=== PATIENT | male | born 1940 | race Caucasian/White ===

== ENCOUNTER 2024-04-22 19:40 | Inpatient (IN) | payer OTHER ==
[2024-04-22] MEDS ORDERED: ACETAMINOPHEN 325 MG TABLET (FP) ONE (21:10)
[2024-04-22] MEDS ORDERED: ALBUTEROL SO4 2.5/IPRATROPIUM 0.5 INH SOL 3 ML VIAL.NEB. NEB ONE (21:28)
[2024-04-22] MEDS ORDERED: methylPREDNISolone NA SUCC 125 MG/2 ML VIAL ONE (21:28)
[2024-04-22 21:33] LABS: VENOUS BASE EXCESS 0.7 mmol/L (-2-2); VENOUS O2 SATURATION 56.2 % (70-80); VENOUS PCO2 40.1 mmHg (38-52); VENOUS PH 7.416 (7.310-7.410)
[2024-04-22 21:34] LABS: HEMATOCRIT 35.1 % (35.4-49); HEMOGLOBIN 11.8 GM/dL (11.7-16.9); MCH 31.6 pg (25.7-33.7); MCHC 33.6 g/dl (32.0-35.9); MEAN CELL VOLUME 94.1 fl (80-96); PLATELET COUNT 84 10^3/uL (134-434); RBC 3.73 M/mm3 (4.00-5.60); RDW 15.7 % (11.9-15.9); WHITE BLOOD COUNT 6.5 K/mm3 (4.0-10.0)
[2024-04-22 21:37] LABS: EPI CELLS 4 /uL (0-25.1); HYALINE CASTS 0 /uL (0-3.1); URINE APPEARANCE CLEAR; URINE BACTERIA 12 /uL (0-1359); URINE BILIRUBIN NEGATIVE (NEGATIVE); URINE COLOR YELLOW; URINE GLUCOSE (UA) NEGATIVE (NEGATIVE); URINE KETONE NEGATIVE (NEGATIVE); URINE LEUK ESTERASE TRACE (NEGATIVE); URINE NITRITE NEGATIVE (NEGATIVE); URINE PROTEIN 1+ (NEGATIVE); URINE RBC 24 /uL (0-23.9); URINE WBC 16 /uL (0-25.8)
[2024-04-22] MEDS: ACETAMINOPHEN 325 MG TABLET (FP) PO ONE (21:39)
[2024-04-22] MEDS: ALBUTEROL SO4 2.5/IPRATROPIUM 0.5 INH SOL 3 ML VIAL.NEB. NEB ONE (21:39)
[2024-04-22] MEDS: methylPREDNISolone NA SUCC 125 MG/2 ML VIAL IVPUSH ONE (21:40)
[2024-04-22] MEDS ORDERED: CEFTRIAXONE 1 GM/50 ML BAG ONE (22:29)
[2024-04-22] MEDS ORDERED: AZITHROMYCIN IVPB 500 MG/250 ML BAG IVPB ONE (22:29)
[2024-04-22 22:33] LABS: POTASSIUM 4.3 mmol/L (3.5-5.1)
[2024-04-22 22:36] LABS: ALBUMIN 3.9 g/dl (3.4-5.0); BLOOD UREA NITROGEN 32.4 mg/dL (7-18); MAGNESIUM 1.9 mg/dL (1.8-2.4)
[2024-04-22 22:39] LABS: CREATININE 1.2 mg/dL (0.55-1.3)
[2024-04-22 22:41] LABS: BILIRUBIN,TOTAL 0.8 mg/dL (0.2-1); TOT PROT 7.7 g/dl (6.4-8.2)
[2024-04-22] MEDS: AZITHROMYCIN IVPB 500 MG in DEXTROSE 5%-WATER - 250 ML IVPB ONE (22:58)
[2024-04-22] MEDS ORDERED: ACETAMINOPHEN 325 MG TABLET (FP) PO PRN (23:05)
[2024-04-22] MEDS ORDERED: PANTOPRAZOLE 40 MG TABLET PO ONE (23:33)
[2024-04-22] MEDS: PANTOPRAZOLE 40 MG TABLET PO SCH (23:45)
[2024-04-22] MEDS: D5-1/2NS+10 MEQ KCL - 10 MEQ/1,000 ML INFUS.BAG IV SCH (23:45)
[2024-04-23] MEDS ORDERED: MAGNESIUM 1GM/D5W - 1 GM/100 ML IVPB IVPB ONE (00:06)
[2024-04-23] MEDS: MAGNESIUM 1GM/D5W 100ML - 100 ML IVPB IVPB ONE (00:10)
[2024-04-23 08:25] LABS: POTASSIUM 3.8 mmol/L (3.5-5.1)
[2024-04-23 08:28] LABS: BLOOD UREA NITROGEN 27.7 mg/dL (7-18); HEMATOCRIT 32.9 % (35.4-49); HEMOGLOBIN 11.1 GM/dL (11.7-16.9); MCHC 33.6 g/dl (32.0-35.9); MEAN CELL VOLUME 95.1 fl (80-96); MEAN PLT VOLUME 9.2 fl (7.5-11.1); PLATELET COUNT 74 10^3/uL (134-434); RBC 3.46 M/mm3 (4.00-5.60); RDW 15.6 % (11.9-15.9); WHITE BLOOD COUNT 6.3 K/mm3 (4.0-10.0)
[2024-04-23 08:31] LABS: CREATININE 1.4 mg/dL (0.55-1.3)
[2024-04-23 09:20] LABS: ANISOCYTOSIS 0; MACROCYTOSIS 0
[2024-04-23] MEDS ORDERED: ENOXAPARIN NA (PORCINE) 40 MG/0.4 ML DISP.SYRIN SQ SCH (10:00)
[2024-04-23] MEDS: ENOXAPARIN NA (PORCINE) 40 MG/0.4 ML DISP.SYRIN SQ SCH (11:00)
[2024-04-23] MEDS ORDERED: PANTOPRAZOLE 40 MG TABLET PO ONE (14:37)
[2024-04-23] MEDS ORDERED: ASPIRIN COATED 81 MG TABLET.EC ONE (14:37)
[2024-04-23] MEDS ORDERED: CEFTRIAXONE 1 GM/50 ML BAG ONE (14:38)
[2024-04-23] MEDS ORDERED: ENOXAPARIN NA (PORCINE) 40 MG/0.4 ML DISP.SYRIN SQ ONE (14:38)
[2024-04-23] MEDS: CEFTRIAXONE 1 GM in DEXTROSE 5%-WATER - 50 ML IVPB SCH (14:52)
[2024-04-23] MEDS: ASPIRIN COATED 81 MG TABLET.EC PO SCH (14:52)
[2024-04-23] MEDS: INSULIN ASPART SLIDING SCALE (NOVOLOG) 1 VIAL SQ SCH (21:39)
[2024-04-24 09:23] LABS: BASO % 0.1 % (0-2.0); EOS % 0.2 % (0-4.5); HEMATOCRIT 31.4 % (35.4-49); HEMOGLOBIN 10.5 GM/dL (11.7-16.9); LYMPH % 9.7 % (8-40); MCH 31.9 pg (25.7-33.7); MCHC 33.5 g/dl (32.0-35.9); MEAN CELL VOLUME 95.1 fl (80-96); MONO % 9.4 % (3.8-10.2); NEUT % 80.6 % (42.8-82.8); PLATELET COUNT 86 10^3/uL (134-434); RDW 15.2 % (11.9-15.9); WHITE BLOOD COUNT 9.3 K/mm3 (4.0-10.0)
[2024-04-24] MEDS: CEFTRIAXONE 1 G/50 ML PREMIX 50 ML IVPB SCH (09:45)
[2024-04-24 09:57] LABS: BLOOD UREA NITROGEN 28.5 mg/dL (7-18)
[2024-04-24 09:58] LABS: CREATININE 1.1 mg/dL (0.55-1.3)
[2024-04-24 09:59] LABS: CALCIUM 9.1 mg/dL (8.5-10.1)
[2024-04-24] MEDS: PIPERACILLIN/TAZOB 3.375 GM 50 ML IVPB SCH (20:30)
[2024-04-25] MEDS: FUROSEMIDE 40 MG/4 ML INJECTABLE VIAL IVPUSH SCH (10:34)
[2024-04-25] MEDS: SACUBITRIL/VALSARTAN 24 MG-26 MG TABLET PO SCH (10:34)
[2024-04-25 11:15] LABS: BASO % 0.1 % (0-2.0); HEMATOCRIT 36.7 % (35.4-49); HEMOGLOBIN 12.3 GM/dL (11.7-16.9); LYMPH % 10.8 % (8-40); MCH 31.6 pg (25.7-33.7); MCHC 33.4 g/dl (32.0-35.9); MEAN CELL VOLUME 94.5 fl (80-96); MEAN PLT VOLUME 9.1 fl (7.5-11.1); MONO % 11.8 % (3.8-10.2); NEUT % 76.3 % (42.8-82.8); PLATELET COUNT 109 10^3/uL (134-434); RBC 3.88 M/mm3 (4.00-5.60); RDW 15.6 % (11.9-15.9); WHITE BLOOD COUNT 8.4 K/mm3 (4.0-10.0)
[2024-04-25 11:43] LABS: BLOOD UREA NITROGEN 28.7 mg/dL (7-18); CALCIUM 9.2 mg/dL (8.5-10.1)
[2024-04-25 11:47] LABS: CREATININE 1.2 mg/dL (0.55-1.3)
[2024-04-25] MEDS: guaiFENesin/CODEINE 5 ML UNIT-DOSE CUPS PO PRN (22:04)
[2024-04-25] MEDS: ALBUTEROL SO4 2.5/IPRATROPIUM 0.5 INH SOL 3 ML VIAL.NEB. NEB PRN (22:24)
[2024-04-26 07:11] LABS: POTASSIUM 3.6 mmol/L (3.5-5.1)
[2024-04-26 07:13] LABS: BLOOD UREA NITROGEN 28.3 mg/dL (7-18); CALCIUM 8.7 mg/dL (8.5-10.1)
[2024-04-26 07:17] LABS: CREATININE 1.3 mg/dL (0.55-1.3)
[2024-04-26 07:42] LABS: BASO % 0.3 % (0-2.0); EOS % 3.1 % (0-4.5); HEMATOCRIT 34.8 % (35.4-49); HEMOGLOBIN 11.8 GM/dL (11.7-16.9); LYMPH % 18.8 % (8-40); MCH 31.8 pg (25.7-33.7); MCHC 33.8 g/dl (32.0-35.9); MEAN CELL VOLUME 93.9 fl (80-96); MEAN PLT VOLUME 9.1 fl (7.5-11.1); MONO % 13.2 % (3.8-10.2); NEUT % 64.6 % (42.8-82.8); PLATELET COUNT 95 10^3/uL (134-434); RDW 14.8 % (11.9-15.9); WHITE BLOOD COUNT 6.3 K/mm3 (4.0-10.0)
[2024-04-26] MEDS: metoPROLOL SUCCINATE 25 MG TAB.SR.24H (FP) PO SCH (09:50)
[2024-04-26] MEDS: FUROSEMIDE 40 MG TABLET (FP) PO SCH (09:51)
[2024-04-26] MEDS: LORazepam 2 MG/ML SDV VIAL IVPUSH PRN (16:56)
[2024-04-27 07:58] LABS: HEMATOCRIT 37.2 % (35.4-49); HEMOGLOBIN 12.5 GM/dL (11.7-16.9); MCH 31.9 pg (25.7-33.7); MCHC 33.6 g/dl (32.0-35.9); MEAN CELL VOLUME 94.8 fl (80-96); MEAN PLT VOLUME 8.9 fl (7.5-11.1); PLATELET COUNT 101 10^3/uL (134-434); RBC 3.92 M/mm3 (4.00-5.60); RDW 15.3 % (11.9-15.9); WHITE BLOOD COUNT 6.3 K/mm3 (4.0-10.0)
[2024-04-27 08:11] LABS: POTASSIUM 3.7 mmol/L (3.5-5.1)
[2024-04-27 08:24] LABS: CALCIUM 8.4 mg/dL (8.5-10.1)
[2024-04-27 08:25] LABS: BLOOD UREA NITROGEN 27.4 mg/dL (7-18)
[2024-04-27 08:28] LABS: CREATININE 1.5 mg/dL (0.55-1.3)
[2024-04-27 08:57] LABS: ANISOCYTOSIS 0; MACROCYTOSIS 0
[2024-04-28 08:19] LABS: HEMATOCRIT 38.7 % (35.4-49); HEMOGLOBIN 12.9 GM/dL (11.7-16.9); MCHC 33.4 g/dl (32.0-35.9); MEAN CELL VOLUME 95.9 fl (80-96); MEAN PLT VOLUME 9.2 fl (7.5-11.1); PLATELET COUNT 113 10^3/uL (134-434); RBC 4.04 M/mm3 (4.00-5.60); RDW 15.2 % (11.9-15.9); WHITE BLOOD COUNT 5.7 K/mm3 (4.0-10.0)
[2024-04-28 09:15] LABS: ANISOCYTOSIS 0; MACROCYTOSIS 0
[2024-04-30 12:52] LABS: HEMATOCRIT 36.2 % (35.4-49); HEMOGLOBIN 12.3 GM/dL (11.7-16.9); MCH 31.9 pg (25.7-33.7); MCHC 33.9 g/dl (32.0-35.9); MEAN CELL VOLUME 94.1 fl (80-96); MEAN PLT VOLUME 8.7 fl (7.5-11.1); PLATELET COUNT 109 10^3/uL (134-434); RBC 3.85 M/mm3 (4.00-5.60); RDW 15.7 % (11.9-15.9); WHITE BLOOD COUNT 5.6 K/mm3 (4.0-10.0)
[2024-04-30 13:37] LABS: POTASSIUM 3.7 mmol/L (3.5-5.1)
[2024-04-30 13:40] LABS: CALCIUM 9.3 mg/dL (8.5-10.1)
[2024-04-30 13:41] LABS: ALBUMIN 3.4 g/dl (3.4-5.0)
[2024-04-30 13:44] LABS: CREATININE 1.4 mg/dL (0.55-1.3)
[2024-04-30 13:45] LABS: BILIRUBIN,TOTAL 0.8 mg/dL (0.2-1); TOT PROT 7.2 g/dl (6.4-8.2)
[2024-04-30 13:48] LABS: ANISOCYTOSIS 0; MACROCYTOSIS 0
[2024-05-01] MEDS: FUROSEMIDE 20 MG TABLET (FP) PO SCH (11:19)
[2024-05-01] MEDS ORDERED: ACETAMINOPHEN 325 MG TABLET (FP) PO PRN (15:11)
[2024-05-01] MEDS ORDERED: LORazepam 2 MG/ML SDV VIAL IVPUSH PRN (15:11)
[2024-05-01] MEDS ORDERED: ALBUTEROL SO4 2.5/IPRATROPIUM 0.5 INH SOL 3 ML VIAL.NEB. NEB PRN (15:11)
[2024-05-01] MEDS: INSULIN ASPART SLIDING SCALE (NOVOLOG) 1 VIAL SQ SCH (16:40)
[2024-05-01] MEDS: PIPERACILLIN/TAZOB 3.375 GM 50 ML IVPB SCH (17:04)
[2024-05-01] MEDS: SACUBITRIL/VALSARTAN 24 MG-26 MG TABLET PO SCH (21:10)
[2024-05-02] MEDS: ASPIRIN COATED 81 MG TABLET.EC PO SCH (10:25)
[2024-05-02] MEDS: metoPROLOL SUCCINATE 25 MG TAB.SR.24H (FP) PO SCH (11:12)
[2024-05-04 10:04] LABS: BASO % 0.3 % (0-2.0); EOS % 4.6 % (0-4.5); HEMATOCRIT 39.8 % (35.4-49); HEMOGLOBIN 13.3 GM/dL (11.7-16.9); LYMPH % 12.1 % (8-40); MCH 31.8 pg (25.7-33.7); MCHC 33.4 g/dl (32.0-35.9); MEAN CELL VOLUME 95.3 fl (80-96); MEAN PLT VOLUME 9.1 fl (7.5-11.1); MONO % 10.8 % (3.8-10.2); NEUT % 72.2 % (42.8-82.8); PLATELET COUNT 115 10^3/uL (134-434); RBC 4.18 M/mm3 (4.00-5.60); RDW 15.4 % (11.9-15.9); WHITE BLOOD COUNT 6.3 K/mm3 (4.0-10.0)
[2024-05-04 10:26] LABS: POTASSIUM 4.3 mmol/L (3.5-5.1)
[2024-05-04 10:27] LABS: CALCIUM 10.4 mg/dL (8.5-10.1)
[2024-05-04 10:31] LABS: CREATININE 1.6 mg/dL (0.55-1.3)
[2024-05-04 12:25] LABS: ANISOCYTOSIS 1+; MACROCYTOSIS 0; OVALOCYTE 1+
[2024-05-04] MEDS: AMOX TR/POT CLAV 500MG/125MG TABLETS (FP) PO SCH (17:02)
[2024-05-04 20:46] VITALS: BMI 22.4
[2024-05-05 02:49] VITALS: RESP 18
[2024-05-06 09:25] VITALS: BP 94/52; PULSE 60; TEMP 98.4
== END 2024-05-06 11:51 | disposition home or self-care (01) | DRG 193 ==
LOC: JER 19:40 → JERBED 22:29 → J4W 04-23 18:38 → J6S 05-01 14:19
PROVIDERS: ADMIT Internal Medicine; ATTEND Internal Medicine
DX: J18.9 Pneumonia, unspecified organism (principal); I50.23 Acute on chronic systolic (congestive) heart failure; J96.01 Acute respiratory failure with hypoxia; I24.89 Other forms of acute ischemic heart disease; R04.2 Hemoptysis; J98.11 Atelectasis; J44.9 Chronic obstructive pulmonary disease, unspecified; F03.90 Unspecified dementia, unspecified severity, without behavioral disturbance, psychotic disturbance, mood disturbance, and anxiety; D69.6 Thrombocytopenia, unspecified; E86.0 Dehydration; E83.42 Hypomagnesemia; I44.7 Left bundle-branch block, unspecified; D64.9 Anemia, unspecified
CPT/HCPCS: 0241U-QW; 36415; 71045-TC-FY; 71046-TC-FY; 80048; 80053; 81003; 82272; 82803; 82962; 83036; 83735; 83880; 84100; 84439; 84443; 84481; 84484; 85025; 85379; 87070; 87086; 87205; 87899; 93005; 93010; 93306-TC; 94640; 97116-GP; 97162-GP; 99285-25

== ENCOUNTER 2025-03-06 15:50 | Emergency (ER) | payer OTHER, MEDICARE ==
[2025-03-06 16:08] VITALS: TEMP 97.5; BMI 23.7
[2025-03-06 17:26] VITALS: BP 128/70; PULSE 71; RESP 15
[2025-03-06] MEDS ORDERED: DIPHTH,PERTUSS(ACELL),TET 0.5 ML DISP.SYRIN IM ONE (17:45)
[2025-03-06] MEDS: DIPHTH,PERTUSS(ACELL),TET 0.5 ML DISP.SYRIN IM ONE (17:49)
== END 2025-03-06 18:06 | disposition home or self-care (01) ==
LOC: JER 15:50
PROC: 3E0234Z Introduction of Serum, Toxoid and Vaccine into Muscle, Percutaneous Approach (ICD-10-PCS; principal; 2025-03-06)
DX: S01.01XA Laceration without foreign body of scalp, initial encounter (principal); Z23 Encounter for immunization; W18.30XA Fall on same level, unspecified, initial encounter; Y92.121 Bathroom in nursing home as the place of occurrence of the external cause
CPT/HCPCS: 70450-TC; 72125-TC; 82962; 90471; 90715; 93005; 93010; 99285-25